=== PATIENT | male | born 1955 | race Caucasian/White ===

== ENCOUNTER 2017-07-03 15:01 | Emergency (ER) | payer BC ==
[2017-07-03] MEDS ORDERED: DEXAMETHASONE 4 MG/ML 1ML VIAL IVP ONE (15:14)
--- NOTE | 2017-07-03 15:15 | Emergency Department Record ---
History of Present Illness - General Chief Complaint: General Stated Complaint: SWELLING IN THROAT SINCE SURGERY, PT NOT HIMSELF Time Seen by Provider: 07/03/17 15:03 Source: Patient, Family Mode of Arrival: Ambulatory Limitations: No limitations - History of Present Illness Initial comments: 61 yo male presents with several concerns after surgery. The patient had left knee replacement. The patient has been very sleepy, falls asleep very easily, had periods of confusion, and woke this morning with throat pain with uvular swelling. No chest pain. He denies shortness of breath. The spouse has noted some slurring and voice changes as well. No syncope. His surgeon is Dr Bearden. His PCP is Dr Orellana. The spouse has noted shallow breathing, snoring, and some gasping like sounds when asleep. His pain medications have been as follows. Last night Tramadol 8pm, Oxycontin 9pm. Today Tramadol at 9am and one Moore at 10:30 am. He was falling asleep during PT at home today. -: Days(s) (1) Location: Other (Throat) Consistency: Constant Improves with: None Worsens with: Other (falling asleep) Associated Symptoms: Denies other symptoms - [place] Coma Scale Eye Response: (4) Open spontaneously Motor Response: (6) Obeys commands Verbal Response: (5) Oriented Hannah Total: 15 - Related Data Home Medications Medication Instructions Recorded Confirmed Last Taken Aspirin [Aspir-Low] 81 mg PO BID 07/03/17 07/03/17 Unknown Celecoxib 200 mg PO BID 07/03/17 07/03/17 Unknown Cephalexin 1,000 mg PO Q8H 07/03/17 07/03/17 07/03/17 Divalproex Sodium [Depakote] 2,000 mg PO QHS 07/03/17 07/03/17 Unknown Hydrocodone/Acetaminophen 1 each PO Q4H PRN 07/03/17 07/03/17 07/03/17 10:30 [Hydrocodon-Acetaminophn 10-325] Metoprolol Tartrate 50 mg PO BID 07/03/17 07/03/17 Unknown Ondansetron [Zofran Odt] 4 mg PO Q8H 07/03/17 07/03/17 Unknown Oxycodone HCl 5 mg PO Q4H PRN 07/03/17 07/03/17 07/02/17 22:30 Tramadol HCl 50 mg PO Q6H 07/03/17 07/03/17 07/03/17 09:00 Allergies Allergy/AdvReac Type Severity Reaction Status Date / Time No Known Drug Allergies Allergy Verified 07/03/17 15:17 Travel Screening - Travel/Exposure Within Last 30 Days Have you traveled within the last 30 days?: No Review of Systems Constitutional: Reports: Malaise, Weakness. Denies: Chills, Fever Eyes: Denies: Eye discharge, Eye pain, Photophobia, Vision change ENT: Reports: Congestion, Throat pain. Denies: Ear pain, Epistaxis Respiratory: Denies: Cough, Dyspnea, Hemoptysis, Stridor, Wheezes Cardiovascular: Denies: Chest pain, Syncope Endocrine: Denies: Fatigue Gastrointestinal: Denies: Abdominal pain, Diarrhea, Nausea, Vomiting Genitourinary: Denies: Dysuria, Frequency, Hematuria Musculoskeletal: Reports: Arthralgia. Denies: Back pain, Myalgia Skin: Denies: Bruising, Change in color, Rash Neurological: Denies: Confusion, Numbness, Weakness Psychiatric: Denies: Anxiety Hematological/Lymphatic: Denies: Blood Clots, Easy bleeding, Easy bruising, Swollen glands Physical Exam - General General Appearance: Alert, Oriented x3, Cooperative, No acute distress Limitations: No limitations - Head Head exam: Atraumatic, Normocephalic, Normal inspection - Eye Eye exam: Normal appearance. negative: Conjunctival injection, Periorbital swelling, Scleral icterus - ENT ENT exam: Mucous membranes moist. negative: Normal exam, Normal orophraynx ( enlarged uvula) Ear exam: Normal external inspection Nasal Exam: Normal inspection Mouth exam: Muffled voice (mild), Tongue normal. negative: Drooling, Laceration , Tongue elevation, Trismus Teeth exam: Normal inspection. negative: Dental caries Throat exam: Normal inspection. negative: Tonsillar erythema, Tonsillar exudate , R peritonsillar mass, L peritonsillar mass - Neck Neck exam: Normal inspection, Full ROM. negative: Lymphadenopathy, Tenderness - Respiratory Respiratory exam: Normal lung sounds bilaterally. negative: Respiratory distress, Rhonchi, Stridor, Wheezes - Cardiovascular Cardiovascular Exam: Regular rate, Normal rhythm, Normal heart sounds Peripheral Pulses: 2+: Radial (R), Radial (L) - GI/Abdominal GI/Abdominal exam: Soft. negative: Tenderness - Rectal Rectal exam: Deferred - exam: Deferred - Extremities Extremities exam: Normal inspection, Full ROM, Normal capillary refill. negative: Tenderness - Back Back exam: Reports: Normal inspection. Denies: CVA tenderness (R), CVA tenderness (L) - Neurological Neurological exam: Alert, Normal gait, Oriented X3 - Psychiatric Psychiatric exam: Other (Some what sleepy) - Skin Skin exam: Dry, Intact, Normal color, Warm Course Vital Signs 07/03/17 15:06 Temperature 98.0 F Pulse Rate 63 Respiratory 16 Rate Blood Pressure 125/74 Pulse Ox 94 L - Reevaluation(s) Reevaluation #1: The patient was seen and examined. He had moderate uvular swelling. He is alert. He is not is distress. His voice is mildly garbled. His room air oxygen level is 88-92%. She seems somewhat sleepy but not confusion during the initial H and P. He likely has a combination of uvular trauma, narcotic effect of medications, RADHA, obesity that are contributing to his hypoxia. Likely hypoxia and narcotic may explain his confusion witnessed at home 07/03/17 15:39 07/03/17 15:52 EKG NSR rate is 60, intervals normal, axis normal, ST no acute changes. 07/03/17 16:34 The labs were reviewed Hgb is 9.6 No other acute changes 07/03/17 16:54 The HCT and CXR were read as no acute process. 07/03/17 17:[address] of [facility]. He agrees with the transfer. He requests PE study prior to transfer given his recent surgery The patient and spouse were informed and agree. 07/03/17 18:33 CT of the chest reviewed. No PE, ectatic aorta at 4cm, Pneumonitis noted bilateral upper lung granger The CT was reviewed with Dr Reyes 07/03/17 18:45 Medical Decision Making - Lab Data Result diagrams: 07/03/17 15:20 07/03/17 15:20 Disposition Disposition: Transfer Clinical Impression: Uvulitis, Hypoxia, Somnolence, Pneumonia Disposition: Acute Care Hospital Transfer Transfer To: [facility] Reason For Transfer: swollen uvula, hypoxia Accepting Physician: Amy Time Discussed w/Accepting Physician: 17:52 Condition: (2) Stable Forms: Patient Portal Access Time of Disposition: 17:52 Quality - Quality Measures Quality Measures: N/A - Blood Pressure Screening Does Patient Have Any of the Following: No Blood Pressure Classification: Pre-Hypertensive BP Reading Systolic Measurement: 125 Diastolic Measurement: 74 Screening for High Blood Pressure: < Pre-Hypertensive BP, F/U Documented > [ G8950] Pre-Hypertensive Follow-up Interventions: Referral to alternative/primary care provider.
[2017-07-03 15:33] LABS: HEMATOCRIT 30.5 % (42.0-52.0); HEMOGLOBIN 9.6 gm/dl (14.0-18.0); MEAN CELL VOLUME 91.3 fl (81-97); MEAN CORPUSCULAR HEMOGLOBIN 28.7 pg (27-33); MEAN CORPUSCULAR HGB CONC 31.5 g/dl (32-36); PLATELET COUNT 188 K/uL (130-400); RED BLOOD COUNT 3.34 M/uL (4.40-5.70); RED CELL DISTRIBUTION WIDTH 14.1 % (11.5-14.5); WHITE BLOOD COUNT W/O DIFF 9.5 K/uL (4.2-12.2)
[2017-07-03 15:56] LABS: BLOOD UREA NITROGEN 26 mg/dL (8-23); EST GLOMERULAR FILTRATION RATE > 60 mL/min; TOTAL PROTEIN 6.5 g/dL (6.6-8.7)
[2017-07-03 15:58] LABS: GLUCOSE,RANDOM 126 mg/dL (74-109)
[2017-07-03 16:01] LABS: ALBUMIN 3.7 g/dL (4.0-5.0); ALKALINE PHOSPHATASE 70 U/L (40-129); ALT/SGPT 95 U/L (<41); AST/SGOT 133 U/L (10.0-50.0)
[2017-07-03 16:02] LABS: ALB/GLOB RATIO 1.3 (1.1-1.8)
[2017-07-03 17:05] LABS: URINE APPEARANCE CLEAR; URINE BILIRUBIN NEGATIVE (NEGATIVE); URINE BLOOD NEGATIVE (NEGATIVE); URINE COLOR ORANGE; URINE GLUCOSE (UA) NEGATIVE (NEGATIVE); URINE KETONE NEGATIVE (NEGATIVE); URINE LEUKOCYTE ESTERASE NEGATIVE (NEGATIVE); URINE NITRITE NEGATIVE (NEGATIVE); URINE PROTEIN NEGATIVE (NEGATIVE); URINE UROBILINOGEN 0.2 E.U./dL (0.20 - 1.00)
[2017-07-03 17:11] LABS: PLATELET ESTIMATE NORMAL (NORMAL)
[2017-07-03] MEDS ORDERED: 0.9 % SODIUM CHLORIDE 1,000 ML BAG IV ONE (17:19)
[2017-07-03] MEDS ORDERED: CEFTRIAXONE SODIUM 1 GM in 0.9 % SODIUM CHLORIDE 100ML 100 ML IVPB ONE (18:35)
[2017-07-03] MEDS ORDERED: AZITHROMYCIN 500 MG TABLET PO ONE (18:36)
--- NOTE | 2017-07-04 08:18 | RADIOLOGY REPORT ---
EXAM: CHEST, TWO VIEWS HISTORY: LOW OXYGEN SATURATION. TECHNIQUE: PA and lateral upright views of the chest were obtained. Comparison: None. FINDINGS: The heart, mediastinum, and pulmonary vasculature are normal. There are no acute infiltrates or effusions. There is no pneumothorax. The bones appear intact. There are degenerative changes of both shoulders. An ossified loose body is present within the right subcoracoid recess. IMPRESSION: NO ACUTE CHEST PATHOLOGY. JOB NUMBER: [id number] [facility]
--- NOTE | 2017-07-04 08:26 | CT SCAN REPORT ---
EXAM: CT SCAN OF THE BRAIN WITHOUT CONTRAST HISTORY: CONFUSION. LOW OXYGEN SATURATION. TECHNIQUE: Standard CT imaging of the brain was performed in the axial plane without contrast. Additional coronal and sagittal reformatted images were also performed. Comparison: None. FINDINGS: The ventricles and subarachnoid spaces are normal. The brain parenchyma is unremarkable. There is no mass, mass effect, intracranial hemorrhage, visible acute infarct, or abnormal extraaxial fluid. The skull is intact. The orbits, sinuses, and mastoids are normal. IMPRESSION: NEGATIVE NONCONTRAST CT SCAN OF THE BRAIN. JOB NUMBER: [id number] [facility]
--- NOTE | 2017-07-04 08:30 | CT SCAN REPORT ---
EXAM: CT SCAN OF THE NECK WITH CONTRAST HISTORY: SWOLLEN EPIGLOTTIS. BREATHING ISSUES. STRANGE VOICE. LOW OXYGEN SATURATION. TECHNIQUE: Standard CT imaging of the neck was performed in the axial plane with contrast. 95 ml of Omnipaque 300 were administered. Comparison: None. FINDINGS: The visualized intracranial structures are unremarkable. The orbits , sinuses, and mastoids are normal. The nasopharynx, oropharynx, hypopharynx, and larynx appear within normal limits. The epiglottis is normal. There are no focal inflammatory changes. The major salivary glands are normal in appearance and symmetric bilaterally. The thyroid gland is unremarkable. There are minor emphysematous changes within the upper lung granger. The lungs are otherwise clear. Degenerative changes are present within the spine. There are no acute osseous abnormalities. IMPRESSION: NO ACUTE NECK PATHOLOGY. THE EPIGLOTTIS IS NORMAL AND THERE ARE NO FOCAL INFLAMMATORY CHANGES. JOB NUMBER: [id number] [facility]
--- NOTE | 2017-07-04 08:43 | CT ANGIOGRAM REPORT ---
EXAM: CT ANGIOGRAM OF THE CHEST WITH POST PROCESSING HISTORY: DIFFICULTY BREATHING AND LOW OXYGEN SATURATION. TECHNIQUE: Standard CT angiography of the chest was performed with post processing following the bolus administration of 95 ml of Omnipaque 350. Additional coronal and sagittal maximum intensity projection reformatted images were performed on an independent workstation under concurrent supervision. Comparison: None. FINDINGS: The heart is normal in size. The ascending aorta measures up to 4 cm in diameter. There is no dissection. There is likely suboptimal opacification of the pulmonary arterial tree. There are no visible emboli. There are minor patchy infiltrates within the upper lobes bilaterally, left greater than right. The appearance suggests mild acute pneumonitis. There is a focal area of atelectasis within the right lower lobe. Minor dependent atelectasis is also present at both lung bases. There is no pneumothorax or effusion. The chest wall and axillary regions are normal. A stone is present within the gallbladder with no evidence for acute cholecystitis. A small cyst is partially visualized within the left kidney. There is no lymphadenopathy within the chest or upper abdomen. IMPRESSION: 1. NO EVIDENCE FOR PULMONARY EMBOLUS. 2. MINOR PATCHY INFILTRATES WITHIN THE UPPER LOBES BILATERALLY, LEFT GREATER THAN RIGHT. THE APPEARANCE IS CONSISTENT WITH MILD ACUTE PNEUMONITIS. 3. ATELECTASIS WITHIN THE RIGHT LOWER LOBE. 4. CHOLELITHIASIS WITH NO EVIDENCE FOR ACUTE CHOLECYSTITIS. JOB NUMBER: [id number] [facility]
== END 2017-07-03 19:21 | disposition short-term general hospital (02) ==
LOC: ER 15:01
DX: J18.9 Pneumonia, unspecified organism (principal); R09.02 Hypoxemia; R40.0 Somnolence; K12.2 Cellulitis and abscess of mouth; Z96.652 Presence of left artificial knee joint
CPT/HCPCS: 99285 ×2; 96374; 96375; 96361; 82140; 80053; 81003; 84484; 85027; 71020; 71275; 70450; 70491; 93005; 93010; Q9967; J7030